=== PATIENT | female | born 1955 | race Caucasian/White ===

== ENCOUNTER 2022-12-13 08:00 | Outpatient (CLI) | payer OTHER ==
--- NOTE | 2022-12-13 17:21 | XRAY Report ---
PROCEDURE: Ribs w/PA Chest LT INDICATIONS: CONTUSION OF LEFT FRONT WALL OF THORAX TECHNIQUE: 3 views of the left ribs were acquired, along with a single view chest. COMPARISON: None. FINDINGS: Surgical changes and devices: None. Bones and chest wall: No fractures or dislocations. No suspicious bony lesions. Overlying soft tis sues appear unremarkable. Lungs and pleura: No pleural effusions or pneumothorax. Lungs appear clear. Mediastinum: Mediastinal contours appear normal. Heart size is normal. IMPRESSION: No displaced rib fracture or pneumothorax. No acute cardiopulmonary pulmonary findings Reviewed by: Giovany Gaspar MD on 12/13/2022 4:20 PM AKDT Approved by: Giovany Gaspar MD on 12/13/2022 4:20 PM AKDT Station ID: [id number]
== END 2022-12-13 23:59 | disposition home or self-care (01) ==
LOC: DI.S 08:00
PROVIDERS: ATTEND Emergency Medicine
DX: S20.212A Contusion of left front wall of thorax, initial encounter (principal)